=== PATIENT | male | born 1990 | race American Indian/Alaskan Native ===

== ENCOUNTER 2018-12-30 14:00 | Emergency (ER) | payer SELFPAY ==
[2018-12-30 14:07] VITALS: BP 126/77
--- NOTE | 2018-12-30 14:08 | Event Note ---
ED Screening Note Date of service: 12/30/18 Time: 14:05 ED Screening Note: This is a 28 y.o. M. that presents to the ER with abscess to left occipital scalp for 1 week. PMH of Hidradenitis Suppurativa This initial assessment/diagnostic orders/clinical plan/treatment(s) is/are subject to change based on patients health status, clinical progression and re- assessment by fellow clinical providers in the ED. Further treatment and workup at subsequent clinical providers discretion. Patient/guardian urged not to elope from the ED as their condition may be serious if not clinically assessed and managed. Initial orders include:
[2018-12-30] MEDS ORDERED: LIDOCAINE (1%) 10 MG/1 ML VIAL 20 ML MDV INFILTRATI ONE (16:02)
--- NOTE | 2018-12-30 16:06 | Emergency Department Report ---
Abscess Boil HPI - HPI Chief Complaint: Skin/Abscess/Foreign Body Stated Complaint: BOIL ON SIDE OF HEAD Time Seen by Provider: 12/30/18 14:05 Duration: >1 Week Location: Head Severity: Mild History: Yes Pain, Yes Previous History, No Fever, No Purulent Drainage, No Numbness, No Foreign Body, No Insect Bite HPI: abscess to occipital region x 2 weeks. no systemic sx. hx HIV, most recent labs with barely detectable viral load but then stopped taking meds for unknown reason Home Medications: Previous Rx's Medication Instructions Recorded Last Taken Type Ibuprofen [Motrin 600 MG tab] 600 mg PO Q8H PRN #15 tablet 12/30/18 Unknown Rx Sulfamethoxazole/Trimethoprim 1 each PO BID #20 tablet 12/30/18 Unknown Rx [Bactrim DS TAB] Allergies/Adverse Reactions: Allergies Allergy/AdvReac Type Severity Reaction Status Date / Time No Known Allergies Allergy Verified 12/30/18 14:07 ED Review of Systems ROS: Stated complaint: BOIL ON SIDE OF HEAD Other details as noted in HPI Comment: All other systems reviewed and negative Skin: as per HPI ED Past Medical Hx - Past Medical History Previous Medical History?: Yes Hx HIV: Yes - Surgical History Past Surgical History?: No - Social History Smoking Status: Never Smoker Substance Use Type: None - Medications Home Medications: Home Medications Medication Instructions Recorded Confirmed Last Taken Type Ibuprofen [Motrin 600 MG tab] 600 mg PO Q8H PRN #15 tablet 12/30/18 Unknown Rx Sulfamethoxazole/Trimethoprim 1 each PO BID #20 tablet 12/30/18 Unknown Rx [Bactrim DS TAB] ED Abscess Boil Physical Exam - Exam General: Vital signs noted. No distress. Alert and acting appropriately. Size: 3 cm (occipital scalp with reactive LAD (R)) Exam: Yes Tenderness, Yes Fluctuance, Yes Normal Neurologic Exam, Yes Normal Circulation, No Surrounding Cellulites/Erythema, No Heart Murmur I & D Note - I & D Note I & D Note: Area was prepped and draped in usual sterile fashion. Area of L occipital scalp was anesthetized utilizing 3 cc of 1% lidocaine. A single stab incision was made using an 11 blade and the wound was probed to ensure any loculations were broken up. There was a moderate amount of purulent and bloody drainage. The patient tolerated the procedure well without complication. A dressing was placed to the site. ED Course Vital Signs 12/30/18 14:05 Temperature 97.8 F Pulse Rate 92 H Respiratory 20 Rate Blood Pressure 126/77 [Left] O2 Sat by Pulse 100 Oximetry Critical care attestation.: If time is entered above; I have spent that time in minutes in the direct care of this critically ill patient, excluding procedure time. ED Medical Decision Making - Medical Decision Making scalp abscess s/p I&D abx, warm compresses needs to f/u ID to restart HIV meds - Differential Diagnosis abscess, cellulitis ED Disposition Clinical Impression: Abscess, scalp Disposition: DC- TO HOME OR SELFCARE Is pt being admited?: No Condition: Good Instructions: Abscess Incision and Drainage (ED), Abscess (ED) Prescriptions: Sulfamethoxazole/Trimethoprim [Bactrim DS TAB] 1 each PO BID #20 tablet Ibuprofen [Motrin 600 MG tab] 600 mg PO Q8H PRN #15 tablet PRN Reason: Pain Referrals: PRIMARY CARE, [Primary Care Provider] - 3-5 Days Time of Disposition: 16:05
== END 2018-12-30 16:36 | disposition home or self-care (01) ==
LOC: ED 14:00
DX: L02.811 Cutaneous abscess of head [any part, except face] (principal)

== ENCOUNTER 2019-03-17 23:21 | Emergency (ER) | payer SELFPAY ==
[2019-03-17 23:45] VITALS: BP 125/70
== END 2019-03-18 | disposition left against medical advice (07) ==
LOC: ED 23:21
DX: L02.425 Furuncle of right lower limb (principal); Z53.21 Procedure and treatment not carried out due to patient leaving prior to being seen by health care provider